=== PATIENT | male | born 1995 | race Caucasian/White ===

== ENCOUNTER 2019-09-03 14:56 | Emergency (ER) | payer OTHER ==
[~2019-09-03] VITALS: Ht 175.3 cm; Wt 67.1 kg
[2019-09-03 14:56] VITALS: BP 125/81
--- NOTE | 2019-09-03 15:40 | NUR ---
DR TORRES AT BEDSIDE FOR EVAL.
--- NOTE | 2019-09-03 15:57 | NUR ---
BLUEPRINT BLOCKER AT BEDSIDE FOR BLOOD DRAW.
--- NOTE | 2019-09-03 15:58 | NUR ---
TAX REVENUE OFFICER was informed by MONICA Mcdonough that pt came to [facility] for medical clearance to go to a detox center. Per Notes, Pt is a 23-year-old male who presented to the emergency room stating that he was told to come here for medical clearance to go into a detox program. TAX REVENUE OFFICER met with the pt bedside. Pt is alert and oriented x 4. Pt reports he has a history of heroin and methamphetamine abuse. Pt stated, he came to [facility] with Fatimah, electromyographic technician for [facility] Detox program. TAX REVENUE OFFICER met with Fatimah cordon. Fatimah reports that pt has been in and out of [facility] rehab. Pt was brought in by Fatimah for medical clearance. Fatimah will escort pt back to [facility] once he is medically cleared. TAX REVENUE OFFICER updated MONICA Mcdonough regarding pt's discharge plan.
[2019-09-03 16:02] LABS: BASOPHILS % (AUTO) 0.6 % (0.0-2.0); HEMATOCRIT 41 % (39-51); HEMOGLOBIN 13.4 g/dL (13.5-17.5); LYMPHOCYTES # (AUTO) 1.5 /CMM (0.8-4.8); LYMPHOCYTES % (AUTO) 24.6 % (20.0-44.0); MEAN CORPUSCULAR HGB CONC 33 g/dl (31.0-36.0); MEAN CORPUSCULAR VOLUME 89 fL (80-96); MONOCYTES # (AUTO) 0.6 /CMM (0.1-1.30); MONOCYTES % (AUTO) 10.4 % (2.0-12.0); NEUTROPHILS # (AUTO) 3.9 /CMM (1.8-8.9); NEUTROPHILS % (AUTO) 62.4 % (43.0-81.0); PLATELET COUNT (AUTO) 219 /CMM (150-450); RED BLOOD CELL COUNT(AUTO) 4.57 MIL/uL (4.5-6.0); WHITE BLOOD COUNT (AUTO) 6.2 K/uL (4.3-11.0)
[2019-09-03 16:03] LABS: APPEARANCE,URINE Cloudy (CLEAR); BILIRUBIN,URINE Negative (NEGATIVE); BLOOD, URINE Negative Ery/uL (NEGATIVE); COLOR,URINE Yellow (YELLOW); KETONES,URINE Negative (NEGATIVE); LEUKOCYTE ESTERASE ,URINE Negative (NEGATIVE); NITRITE, URINE Negative (NEGATIVE); PROTEIN,URINE 30 mg/dl (NEGATIVE); UGLUCOSE Negative (NEGATIVE)
[2019-09-03 16:16] LABS: ALANINE AMINOTRANSFERASE 37 U/L (12-78); ALBUMIN 3.6 g/dL (3.4-5.0); ALCOHOL, BLOOD < 3 mg/dL (0-0); ALKALINE PHOSPHATASE 64 U/L (46-116); ASPARTATE AMINOTRANSFERASE 34 U/L (15-37); BILIRUBIN,DIRECT 0.2 mg/dL (0.0-0.2); BILIRUBIN,TOTAL 0.7 mg/dL (0.2-1.0); CALCIUM, SERUM 8.7 mg/dL (8.5-10.1); CARBON DIOXIDE 29 mmol/L (21-32); CHLORIDE 106 mmol/L (98-107); GLUCOSE 103 mg/dL (74-106); POTASSIUM 4.3 mmol/L (3.5-5.1); SODIUM SERUM 146 mmol/L (136-145); UREA NITROGEN, BLOOD 19 mg/dL (7-18)
[2019-09-03 16:19] LABS: ACETAMINOPHEN 0 ug/ml (10-30); SALICYLATE 0.6 mg/dL (2.8-20.0)
[2019-09-03 16:42] LABS: PH,URINE >9.0 (5.0-8.0)
[2019-09-03 16:54] LABS: BACTERIA,URINE Few /HPF (None Seen); RBC,URINE 0-2 /HPF (0-2); SQUAMOUS EPITHELIAL CELL,UR Few /HPF (None Seen); URINE AMORPHOUS PHOSPHATES Moderate /HPF (None Seen); WBC,URINE 0-2 /HPF (0-3)
--- NOTE | 2019-09-03 17:31 | NUR ---
PT MEDICALLY CLEARED FOR D/C. STABLE CONDITION.
== END 2019-09-03 17:32 | disposition home or self-care (01) ==
LOC: ER 14:58
DX: F19.10 Other psychoactive substance abuse, uncomplicated (principal); F15.10 Other stimulant abuse, uncomplicated; Z59.0 Homelessness
CPT/HCPCS: 36415; 80048; 80076; 80305; 80307; 80329; 81001; 85025; 99283; G0480; 81000-TC

== ENCOUNTER 2021-04-18 10:19 | Emergency (ER) | payer OTHER ==
[~2021-04-18] VITALS: Ht 175.3 cm; Wt 67.1 kg
--- NOTE | 2021-04-18 10:52 | NUR ---
BIB [facility] WALKING LIKE DRUNK [place],TAKEN FENTANYL,FRIEND GAVE NARCAN. THE PATIENT IS ALERT AND ORIENTED X3. DENIES PAIN. IN ROOM AIR AND DENIES SOB. RESPIRATION REGULAR AND UNLABORED. WILL CONTINUE TO MONITOR THE PATIENT.
[2021-04-18] MEDS ORDERED: ONDANSETRON 4 MG TAB.RAPDIS SL ONE (11:30)
[2021-04-18] MEDS ORDERED: ONDANSETRON HCL 4 MG/5 ML SOLUTION ONE (12:00)
[2021-04-18] MEDS ORDERED: ONDA4TAB5 PO (13:04)
[2021-04-18] MEDS ORDERED: NALO4SPR NS (13:04)
--- NOTE | 2021-04-18 13:50 | NUR ---
"SS Consult: SS Consult requested for drug abuse & homelessness. The pt. is a 25- year old male who is in ED with C/O accidental OD on Fentanyl. The pt. appears disheveled is A&O X4 and makes poor eye contact. The pt. appears restless and remained cooperative throughout interview. Pt.s mood is depressed with flat affect. Pt. denies visual & auditory hallucinations. Pt. denies SI/ HI. Patient stated that he was at a friends house, [place] using Fentanyl and OD and his friend administered Narcan. MIREYA explored pt.s mental health Hx. Pt. states he has been diagnosed in the past with anxiety & depression and has been prescribed Wellbutrin which he is noncompliant with. SW explored pt.s living situation. Pt. admits he has been experiencing homelessness for the past few years. MIREYA explored pt.s drug & ETOH use. Patient denies ETOH use and states he uses Fentanyl daily and has used it all. SW provided resources for Medication Assisted Tx: [facility]: [address] [place] [address] Intake hours: 5:45am9:00am, walk-ins Friday, Friday, [facility]: [address] [place] [address] Intake hours: 5:45am12:30pm, Friday and [facility]: [address] [place] [address] Intake hours: 8:00am2:00pm, Friday through Friday Pt. accepted resources and stated, I have used Suboxone before. I really want help. I am scared to relapse. Pt. is in the action phase of stages of change. Patient stated he has received prior treatment for opioid dependence. Pt. states he is ambulatory. MIREYA explored pt.s support system. Pt. states he has no support system only his friend, Wilson but does not know his phone number. Pt. states he does not receive any financial assistance. Plan: Pt. is agreeable to DC to detox center and then residential Tx. MIREYA called [facility] [place] and they stated they have no beds until next week. MIREYA called [facility] in [place] and left a voicemail. MIREYA faxed clinicals to [facility] FAX: [phone] TEL: [phone] Pt. signed homeless waiver and it was placed in the chart. MIREYA provided pt. with homeless, and MAT resources and he accepted them : Year-round shelters: [facility] [address] [place] [address] ; [facility] [place] [address] [place] [address]; [facility] [address] [facility] [address] Winter Shelters: [place] Meenu Cordero Provider: Luis Felipe of [facility] Address: [address], [address] # of Beds: 47 Population Served: [place] 6 | [facility] Provider: [facility] Address: [address], [address] # of Beds: 66 Population Served: [facility] Provider: [facility] Address: [address] [facility] [address], [address] # of Beds: 56 Population Served: [facility] [place] Provider: [facility] Address: [address] [place] [address], [address] # of Beds: 49 Population Served: [place] 8 | [facility] Provider: [facility] Serve Address: [address] [facility], [address] # of Beds: 37 Population Served: [facility] Hygiene: [facility]: [address] [address] ; [facility] [address] [facility] ; [facility] [address] . Food Resources: [facility] at [facility]- [address] [place]; Meet Each Need with [place]ign[place] ([facility]) [address] [place]; [facility] [address] [facility]; [facility] [address] [facility]. Mental Health resources provided: [facility] [address] [place], [place] [address] ; [facility] [address] [facility] [address], [place], [place] [phone] ; [facility] [address] [facility] [place], [place] [phone] ; [facility] [address] [place], [place] [address] Healthcare Clinics: [facility] [address] [facility], [address] [place]. [place] ; [facility] [address] [facility] [address] [place] [address]; [facility] [address] [facility] [place] [address] [phone]) [phone] Counseling--Outpatient [facility] [address] [facility], [address] [place], [place] [address] (Specializes in in-depth psychotherapy for emotional distress: anxiety, depression, interpersonal conflicts, life transitions, childhood abuse) [facility] [address] [place] [address] (Assist with solving problem marital difficulties, separation & divorce, aging parents, & grief, chronic & terminal illness) [facility] [address] [place] [address] (Deal with loss & grief, anxiety, marital difficulties) Homebound/Mental Health Services [address] [facility] [place], [place] [address] (Provide in-home mental services to people who are incapable of leaving their homes) [facility] Senior Service/Resource Center [address] [place] [address] [facility] [address] [facility] [place] [address] PSYCHIATRIC OUTPATIENT SERVICES [facility] Partial Hospitalization and Intensive Outpatient Program (Managed Care and [place] Only)[address] [facility] [phone] [facility] Partial Hospitalization and Outpatient [address] [place], [place] [phone] [facility] Mental Health [place] [address] [facility]. [address] [place], [place] [phone] [facility] Partial Hospitalization and Outpatient Mychcad11426 [facility] [place] [address] [place], [phone] Substance Abuse resources provided included: [facility] Substance Abuse Self-Helpline ([facility]) ; [facility] [address] [facility] [place] [facility]. [place] [address] ; [facility] [address] [facility] [address] ; [facility] [address] [facility] [phone] ; [facility] [address] [facility] [phone] ; [facility] [address] [facility] [phone] ; [facility] [address] [facility] [phone] ; [facility] Substance Abuse Helpline([facility])-[facility] ; [facility] ; [facility] [place]; [facility] [place]; [facility] [place]; [facility] [address] [place]; [facility] [place]; [facility] [place]; [facility] [place]; [facility], [facility]. [place]; Alcoholics Anonymous -[facility]; Mp-Jaeq-[place] ; Marijuana Anonymous -[facility]; Narcotics Anonymous www.na.org;"
--- NOTE | 2021-04-18 13:55 | NUR ---
LINUX NETWORK ENGINEER AT THE BEDSIDE
[2021-04-18 14:47] VITALS: BP 128/73
--- NOTE | 2021-04-18 14:47 | NUR ---
Patient discharged to home in stable condition. Written and verbal after care instructions given. Patient verbalizes understanding of instruction.
== END 2021-04-18 14:47 | disposition home or self-care (01) ==
LOC: ER 10:21
DX: T40.411A Poisoning by fentanyl or fentanyl analogs, accidental (unintentional), initial encounter (principal); R11.0 Nausea; Z59.00 Homelessness unspecified; Y92.89 Other specified places as the place of occurrence of the external cause
CPT/HCPCS: 99283; Q0162